=== PATIENT | female | born 1960 | race Caucasian/White ===

== ENCOUNTER 2017-02-26 05:50 | Emergency (ER) | payer OTHER ==
[2017-02-26 05:55] VITALS: BP 179/63; PULSE 51; RESP 16; TEMP 97.7; O2SAT 94
--- NOTE | 2017-02-26 06:24 | EDPHY ---
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 An attempt to keep the patient from falling she bent and twisted her back. She has been having worsening back spasm primarily in her right upper back since that time. No prior back injuries. No numbness or tingling. Did not fall he. Has taken Aleve and ice with no significant relief. No urinary symptoms. No difficulty with ambulation. ROS: 10 point Review of Systems is negative except as noted in the HPI. Past medical history: None Social history: Nonsmoker Physical exam: General: Awake, alert, no acute distress Back: She has palpable muscle spasm in the right trapezius and paraspinal muscles reproducing presenting complaint. These are superior to right scapula. There is some mild in for scapular tenderness without spasm. Left-sided there is no significant spasm or pain. She has no midline tenderness. There is no step-offs. Neuro: Cranial nerves 2-12 intact. Strength is 5 in 5 in bilateral upper lower extremities, sensations intact - Personal History Current Tetanus/Diphtheria Vaccine: Unsure Current Tetanus Diphtheria and Acellular Pertussis (TDAP): Unsure - Medical/Surgical History Hx Asthma: No Hx Chronic Respiratory Disease: No Hx Diabetes: No Hx Cardiac Disease: No Hx Renal Disease: No Hx Cirrhosis: No Hx Alcoholism: No Hx HIV/AIDS: No Hx Splenectomy or Spleen Trauma: No Other PMH: HTN, depression - Social History Smoking Status: Current every day smoker Constitutional: Initial Vital Signs Temperature (C) 36.5 C 02/26/17 05:52 Heart Rate 51 L 02/26/17 05:52 Respiratory Rate 16 02/26/17 05:52 Blood Pressure 179/63 H 02/26/17 05:52 O2 Sat (%) 94 02/26/17 05:52 O2 Delivery Mode Room Air Allergies/Adverse Reactions: gatifloxacin [From Tequin] Allergy (Mild, Verified 02/16/10 16:34) walnut Allergy (Verified 02/26/17 05:55) Home Medications: Medication Instructions Recorded ESCITALOPRAM OXALATE [Lexapro] 20 mg PO DAILY 08/04/11 Lisinopril [Prinivil] 40 mg PO DAILY 08/04/11 Atorvastatin Calcium [Lipitor 20 20 mg PO DAILY 05/19/13 mg (RX)] Medical Decision Making Procedures: ED procedure: Trigger point injection, indication: Back pain with muscle spasm. The patient was verbally consented to the risks of injection. The point a muscle spasm in the right upper trapezius muscles was identified on examination. The skin was prepped with chlorhexidine prep. A total of 10 mL of 0.5% bupivacaine with epinephrine was injected at various points along the muscle spasm. The patient tolerated the procedure very well. There were no complications. Was performed by myself. Departure - Departure Disposition: Home, Routine, Self-Care Clinical Impression: Back pain Condition: Good Instructions: Back Pain (ED) Additional Instructions: Follow up with employee health in 2-3 days for re-evaluation. You may take ibuprofen 600 mg every 6-8 hours as an anti-inflammatory. Apply ice 15 minutes of every hour while awake. Do not remain sedentary or lying in bed. Is important that you keep moving around when you have back pain distal help you feel faster. Referrals: Иван Dowell MD [Primary Care Provider] - As per Instructions
== END 2017-02-26 06:32 | disposition home or self-care (01) ==
DX: S29.9XXA Unspecified injury of thorax, initial encounter (principal); I10 Essential (primary) hypertension; F17.200 Nicotine dependence, unspecified, uncomplicated; W19.XXXA Unspecified fall, initial encounter

== ENCOUNTER 2017-02-27 19:42 | Emergency (ER) | payer OTHER ==
[2017-02-27 20:29] VITALS: RESP 16
[2017-02-27] MEDS ORDERED: DIAZEPAM 5 MG TAB PO ONE ×3 (20:56→21:44)
[2017-02-27] MEDS ORDERED: OXYCODONE/APAP 5/325MG PREPACK#4 BTL TAKEHOME ONE ×3 (21:28→21:45)
[2017-02-27] MEDS ORDERED: DIAZEPAM 5 MG TAB ONE (21:33)
--- NOTE | 2017-02-27 21:45 | UCPHY ---
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 She did not fall during the episode. Initially her upper back and trapezius symptoms were most prominent and she was seen in the [facility] emergency department yesterday morning by Dr. Valadez who performed trigger point injections to her trapezius region with symptomatic improvement at that time. However, today despite taking 2 leaves 2 times a day including this evening she has worsening pain, particularly at the lumbar region. She describes this is slightly worse on the right than the left 6/10 intensity worse with forward flexion. She also has midline lumbar pain. She has 4/10 discomfort at the bilateral trapezius and region. She had 1 leftover Percocet from an injury years ago that she tried with minimal relief this afternoon notes no other exacerbating factors. ROS: No constitutional symptoms. HEENT: No complaints pulmonary: No complaints GI: No nausea vomiting neuro: She has noticed any numbness tingling weakness. No bowel or bladder incontinence. 7 point ROS is otherwise negative. Past Medical/Surgical History: Hypertension Social History: Works as an RN on our Cardiac Floor at [employer] Smoking Status: Never smoked Physical Exam: General Appearance: Alert, no distress. Eyes: Pupils equal and round no pallor or injection. ENT, Mouth: Mucous membranes moist. Respiratory: There are no retractions, lungs are clear to auscultation. Cardiovascular: Regular rate and rhythm. Gastrointestinal: Abdomen is soft and nontender, no masses, bowel sounds normal. Neurological: GCS 15. She has normal light touch sensory exam bilateral lower extremities and 5/5 strength in great toe dorsiflexion plantar flexion bilaterally. She has 2+ symmetric patellar DTRs bilaterally right Achilles DTR 2+ left Achilles slightly weak compared to the right. Skin: Warm and dry, no rashes. Musculoskeletal: Neck is supple nontender except for bilateral trapezius muscle spasm and tenderness. Extremities are symmetrical, full range of motion. Psychiatric: Mood and affect are normal DIFFERENTIAL DIAGNOSIS: After history and physical exam differential diagnosis was considered for lumbar strain, trapezius strain, lumbar compression fracture , disc herniation Constitutional: Initial Vital Signs Temperature (C) 36.8 C 02/27/17 20:15 Heart Rate 57 L 02/27/17 20:15 Respiratory Rate 16 02/27/17 20:15 Blood Pressure 151/70 H 02/27/17 20:15 O2 Sat (%) 93 02/27/17 20:15 O2 Delivery Mode Room Air Allergies/Adverse Reactions: gatifloxacin [From Tequin] Allergy (Mild, Verified 02/27/17 20:33) Hives walnut Allergy (Verified 02/27/17 20:33) Home Medications: Medication Instructions Recorded ESCITALOPRAM OXALATE [Lexapro] 08/04/11 Lisinopril [Prinivil] 08/04/11 Atorvastatin Calcium [Lipitor 20 05/19/ mg (RX)] Methocarbamol [Robaxin 750 mg (*)] 750 - 1,500 mg PO QID PRN #30 tab 02/27/17 oxyCODONE/APAP 5/325 [Percocet 1 - 2 tab PO Q4-6PRN PRN #12 tab 02/27/17 5/325 (*)] MDM/Departure - MDM Diagnostics: Imaging Impressions Lumbar Spine X-Ray 02/27/17 20:55 Impression: Mild disk height narrowing at L4-L5. No evidence for a fracture. Imaging Results: Imaging Impressions Lumbar Spine X-Ray 02/27/17 20:55 Impression: Mild disk height narrowing at L4-L5. No evidence for a fracture. Medications Given: Discontinued Medications Diazepam (Valium) 5 mg PO EDNOW ONE Stop: 02/27/17 20:57 Last Admin: 02/27/17 21:03 Dose: 5 mg Diazepam (Valium) 5 mg PO EDNOW ONE Stop: 02/27/17 21:45 Last Admin: 02/27/17 21:47 Dose: 5 mg Oxycodone/Acetaminophen (Percocet 5/325mg Prepack#4) 1 btl TAKEHOME EDNOW ONE Stop: 02/27/17 21:46 Last Admin: 02/27/17 21:47 Dose: 1 btl ED Course/Re-evaluation: Oral Valium-5 mg repeated x1 total of 10 mg and 1 Percocet with partial relief of symptoms. I counseled the patient regarding low back strain and trapezius strain. Differential diagnosis also includes potential disc herniation. She does seem to have slight diminished left Achilles DTR compared to right. No other deficits are noted. Chest x-ray reveals no compression fracture. She has mild disc narrowing at L4-5 per radiologist. No evidence of cauda equina. Counseled her regarding back rest and back stretches. She will follow up with work comp clinic. - Depart Disposition: Home, Routine, Self-Care Clinical Impression: Low back strain Qualifiers: Encounter type: initial encounter Qualified Code(s): S39.012A - Strain of muscle, fascia and tendon of lower back, initial encounter Trapezius muscle strain Qualifiers: Encounter type: initial encounter Laterality: unspecified laterality Qualified Code(s): S46.819A - Strain of other muscles, fascia and tendons at shoulder and upper arm level, unspecified arm, initial encounter Condition: Good Instructions: Oxycodone/Acetaminophen (By mouth), Low Back Strain (ED) Additional Instructions: Diagnosis: 1. Low back strain 2. Trapezius muscle strain Your back x-ray looks normal with exception of the findings consistent with muscle spasm. You seem to have slightly diminished left Achilles reflex the course was the L5- S1 distribution. However, you have no evidence of weakness on exam or loss of sensation. The differential diagnosis includes low back strain that seems most likely verses disc herniation Plan: Aleve-2 tabs 2 times a day or Ibuprofen 400-600 mg per 6 hours regularly for the next week then as needed. Methocarbamol muscle relaxants as needed. Percocet or Tylenol as needed for pain. No driving alcohol or work on Percocet. Starts daily stretches prior to taking muscle relaxants and Vicodin in the morning. 3-5 minutes each of: "Butterfly stretch," "Sphinx stretch", "pigeon stretch", and hamstring stretch. Avoid lifting more than 5-10 pounds until symptoms improve. Call your primary with your work comp physician within the next 2-5 days. Go to the emergency department for worsening of your symptoms despite the treatment plan. Stand Alone Forms: Work Comp Follow Up, Work Excuse Prescriptions: Methocarbamol [Robaxin 750 mg (*)] 750 - 1,500 mg PO QID PRN #30 tab PRN Reason: Muscle Spasms oxyCODONE/APAP 325 [Percocet 5/325 (*)] 1 - 2 tab PO Q4-6PRN PRN #12 tab PRN Reason: Pain Referrals: Иван Dowell MD [Primary Care Provider] - As per Instructions - PQRS PQRS Measurement: NA
[2017-02-27 21:55] VITALS: BP 147/81; PULSE 61; TEMP 97.9; O2SAT 96
== END 2017-02-27 21:56 | disposition home or self-care (01) ==
LOC: CED 19:42
DX: S39.012A Strain of muscle, fascia and tendon of lower back, initial encounter (principal); S46.819A Strain of other muscles, fascia and tendons at shoulder and upper arm level, unspecified arm, initial encounter; X50.9XXA Other and unspecified overexertion or strenuous movements or postures, initial encounter; Y92.538 Other ambulatory health services establishments as the place of occurrence of the external cause; Y99.0 Civilian activity done for income or pay
CPT/HCPCS: 72100-PO; 99214-PO; G0463-PO

== ENCOUNTER → 2017-05-22 | Outpatient (CLI) | payer OTHER | LOC: CIMAGING 14:10 | PROVIDERS: ATTEND Family Medicine | DX: Z12.31 Encounter for screening mammogram for malignant neoplasm of breast (principal) | CPT/HCPCS: G0202 ==

== ENCOUNTER → 2017-10-31 | Outpatient (CLI) | payer OTHER | LOC: FIMAGING 14:36 | PROVIDERS: ATTEND Obstetrics & Gynecology | DX: Z13.820 Encounter for screening for osteoporosis (principal) ==

== ENCOUNTER → 2018-10-29 | Outpatient (CLI) | payer OTHER | LOC: FIMAGING 15:25 | PROVIDERS: ATTEND Family Medicine | DX: Z12.31 Encounter for screening mammogram for malignant neoplasm of breast (principal) ==